=== PATIENT | male | born 1980 | race Caucasian/White ===

== ENCOUNTER 2021-07-08 07:42 | Emergency (ER) | payer SELFPAY ==
[~2021-07-08] VITALS: Ht 182.9 cm; Wt 80.0 kg
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
[2021-07-08 08:14] LABS: BASOPHILS % (AUTO) 0 % (0-1); EOSINOPHILS % (AUTO) 2 % (1-7); LYMPHOCYTES % (AUTO) 21 % (22-44); MEAN CORPUSCULAR HEMOGLOBIN 31.2 pg (27.5-34.5); MEAN CORPUSCULAR HGB CONC 33.3 g/dL (33.2-36.2); MEAN PLATELET VOLUME 8.9 fL (7.4-10.4); MONOCYTES % (AUTO) 7 % (2-9); NEUTROPHILS % (AUTO) 70 % (42-75); PLATELET COUNT 189 x10^3/uL (130-400); RED BLOOD COUNT 4.58 x10^6/uL (4.38-5.82); RED CELL DISTRIBUTION WIDTH 13.1 % (9.4-14.8)
[2021-07-08 08:34] LABS: ALBUMIN 3.2 g/dL (3.4-5.0); ANION GAP 3 mmol/L (5-15); CALCIUM 8.7 mg/dL (8.5-10.1); CHLORIDE 110 mmol/L (98-107); SALICYLATE LEVEL 2.2 mg/dL (2.8-20.0)
[2021-07-08 08:53] LABS: AMPHETAMINE SCREEN, URINE Negative (Negative); BARBITURATE SCREEN, URINE Negative (Negative); BENZODIAZEPINE SCREEN, URINE Negative (Negative); CANNABINOID SCREEN, URINE Positive (Negative); COCAINE SCREEN, URINE Negative (Negative); METHADONE SCREEN, URINE Negative (Negative); OPIATE SCREEN, URINE Negative (Negative)
[2021-07-08] MEDS ORDERED: OLANZAPINE 10 MG TABLET ONE (08:58)
[2021-07-08] MEDS ORDERED: OLANZAPINE 10 MG TABLET PO ONE (09:00)
--- NOTE | 2021-07-08 09:40 | NUR ---
WITH REASSESSMENT (POST MEDICATION): PATIENT MUCH MORE CALM, LESS TANGENTIAL. REPORTS "I FEEL MUCH BETTER" PSCHIATRY CLINICAL STAFF PHARMACIST (SEAMUS AT BEDSIDE) ROOM REMAIN CONTROLLED WITH PSYCHIATRIC PRECAUTIONS SITTER WITHIN DIRECT LINE OF FSIGHT
[2021-07-08] MEDS ORDERED: TRAZODONE 50MG TABLET PO PRN (10:30)
[2021-07-08] MEDS ORDERED: HYDROXYZINE PAMOATE 50MG CAP PO PRN (10:30)
--- NOTE | 2021-07-08 11:18 | NUR ---
with reassessment-no changes. patient made aware of legal hold No complaints or request (3ps addressed) sitter within direct line of site
--- NOTE | 2021-07-08 13:30 | NUR ---
REPORT TO NAHUM DODD
--- NOTE | 2021-07-08 13:30 | NUR ---
RECEIVED REPORT FROM JOSE ANGEL DODD. PT SLEEPING CALMLY ON GURNEY, NAD WITH EQUAL CHEST RISE/FALL, NO NEEDS AT THIS TIME, PT REMAINS IN SAFE ENVIRNMENT, SITTER IN VIEW.
--- NOTE | 2021-07-08 14:50 | NUR ---
PT CONTINUES SLEEPING CALMLY ON GURNEY, NAD WITH EQUAL CHEST RISE/FALL, NO NEEDS AT THIS TIME, PT REMAINS IN SAFE ENVIRNMENT, SITTER IN VIEW.
--- NOTE | 2021-07-08 16:01 | NUR ---
PT SLEEPING CALMLY ON GURNEY, AWAKENS & RESPONDS APPROP TO STAFF, NAD WITH EQUAL CHEST RISE/FALL, NO NEEDS AT THIS TIME, PT REMAINS IN SAFE ENVIRNMENT, SITTER IN VIEW.
[2021-07-08 17:03] VITALS: BP 116/80
--- NOTE | 2021-07-08 17:03 | NUR ---
PT MOSTLY SLEEPING ON GURNEY, AWAKENS & RESPONDS APPROP TO STAFF, CALM & COOPERATIVE DURING INTERACTIONS, NAD, DINNER TRAY GIVEN WITH OTHER COMFORT MEASURES PROVIDED, PT REMAINS IN SAFE ENVIRNMENT, SITTER IN VIEW.
--- NOTE | 2021-07-08 17:57 | NUR ---
THROUGHPUT RN NOTE: PSYCH PACKED FAXXED TO [facility], [facility], [facility], [facility], [facility]. RB HEALTH SUPPORT SPECIALIST PHILIP CALLED BACK STATING RB IS ACCEPTING, [facility] INFORMED PT IS SELF PAY, PHILIP STATES PT IS ACCEPTED UNDER SUPA. ACCEPTING PHYSICIAN IS [facility], ACCEPTING YOUSIF MELGOZA TO CALL ED FOR REPORT.
--- NOTE | 2021-07-08 18:05 | NUR ---
PT CONTINUES TO SLEEP ON GURNEY BUT AWAKENS & RESPONDS APPROP TO STAFF, CALM & COOPERATIVE DURING INTERACTIONS, NAD, NO NEEDS AT THIS TIME, PT REMAINS IN SAFE ENVIRNMENT, SITTER IN VIEW.
--- NOTE | 2021-07-08 19:04 | NUR ---
REPORT TO DOUGLAS DODD
--- NOTE | 2021-07-08 19:51 | NUR ---
THIS RN CALLD REPORT TO KHALIF DODD AT [facility], PT TRANSFERRED TO [facility] VIA [facility], PT NAD AT THE TIME OF TRANSFER
[2021-07-09] MEDS ORDERED: OLANZAPINE 10 MG TABLET PO SCH (09:00)
== END 2021-07-08 19:53 ==
LOC: ED 10:58
DX: R45.851 Suicidal ideations (principal); R25.9 Unspecified abnormal involuntary movements
CPT/HCPCS: 36415; 80048; 80299; 80307; 80320; 80329; 82040; 85025; 99285; G0480